=== PATIENT | male | born 1995 | race Two or more races ===

== ENCOUNTER 2019-09-07 23:07 | Emergency (ER) | payer SELFPAY ==
[2019-09-08 00:06] LABS: ABSOLUTE MONOCYTES (AUTO) 0.7 10^3/uL (0.1-1.4); ABSOLUTE NEUT (AUTO) 10.5 10^3/uL (1.7-8.2); BASOPHILS % (AUTO) 0.3 % (0-2); EOSINOPHILS % (AUTO) 0.1 % (0-6); HEMATOCRIT 42.2 % (37.9-51.0); HEMOGLOBIN 14.4 g/dL (13.5-17.0); MEAN CORPUSCULAR HEMOGLOBIN 30.4 pg (27.0-33.4); MEAN CORPUSCULAR HGB CONC 34.2 g/dL (32.0-36.0); MEAN CORPUSCULAR VOLUME 89 fl (80-97); MONOCYTES % (AUTO) 5.6 % (3-13); PLATELET COUNT 319 10^3/uL (150-450); RED BLOOD COUNT 4.74 10^6/uL (4.35-5.55); RED CELL DISTRIBUTION WIDTH 13.5 % (11.5-14.0); TOTAL CELLS COUNTED % (AUTO) 100 %; WHITE BLOOD COUNT 12.2 10^3/uL (4.0-10.5)
[2019-09-08 00:16] LABS: ALBUMIN 5.4 g/dL (3.5-5.0); ALKALINE PHOSPHATASE 73 U/L (38-126); ANION GAP 11 (5-19); ASPARTATE AMINO TRANSFERASE 35 U/L (17-59); BILIRUBIN,DIRECT 0.1 mg/dL (0.0-0.4); BILIRUBIN,TOTAL 0.5 mg/dL (0.2-1.3); BLOOD UREA NITROGEN 15 mg/dL (7-20); CALCIUM 10.1 mg/dL (8.4-10.2); CARBON DIOXIDE 26 mmol/L (22-30); CHLORIDE 105 mmol/L (98-107); GLUCOSE 86 mg/dL (75-110); POTASSIUM 4.3 mmol/L (3.6-5.0); TOTAL PROTEIN 8.5 g/dL (6.3-8.2)
[2019-09-08 00:19] LABS: ACETAMINOPHEN < 10 ug/mL (10-30); ALCOHOL < 10 mg/dL (NONE DETECTED); SALICYLATE < 1.0 mg/dL (2.0-20.0)
[2019-09-08] MEDS ORDERED: MIDAZOLAM 2 MG/2 ML INJ IV ONE ×2 (01:13→01:16)
--- NOTE | 2019-09-08 03:46 | ER Document Report ---
ED General - General Chief Complaint: Altered Mental Status Stated Complaint: BEHAVORIAL ISSUES - HPI Notes: 24-year-old male no significant medical history presents with altered mental status and erratic behavior brought in by EMS. As per run sheet and [employer] Officer Gaspar patient was using possibly marijuana and shrooms and [employer] was called for a domestic dispute, but upon arrival they thought that patient needed EMS given that patient was very sweaty and heart rate was fast. EMS gave fluid bolus and ice packs and ketamine. Patient in ED initially refusing to tell me what happened but then admitted to unknown drug use and remembers standing on the balcony other he says he was just trying to be funny and has no thoughts of suicide or homicide. Patient feels well in the ED, no medical complaints. Patient denies any chest pain, shortness of breath, cocaine use, SI/HI, hallucinations - Related Data Allergies/Adverse Reactions: Unable to Assess Allergy (Unverified 09/08/19 00:42) Past Medical History - General Information source: Patient - Social History Smoking Status: Unknown if Ever Smoked Family History: Reviewed & Not Pertinent Patient has homicidal ideation: - unable to assess Review of Systems - Review of Systems Notes: REVIEW OF SYSTEMS: CONSTITUTIONAL : Denies fever, chills, or sweats. EENT: Denies recent cold/sinus symptoms, denies throat pain CARDIOVASCULAR: Denies chest pain, HELEN RESPIRATORY: Denies cough, denies shortness of breath. GASTROINTESTINAL: Denies abdominal pain, nausea/vomiting. GENITOURINARY: Denies difficulty urinating, painful urination. MUSCULOSKELETAL: Denies neck pain, back pain. SKIN: Denies rash or skin lesions. HEMATOLOGIC : Denies easy bruising or bleeding. LYMPHATIC: Denies swollen, enlarged glands. NEUROLOGICAL: Denies headache, denies change in gait. PSYCHIATRIC: Denies anxiety or stress or depression. Physical Exam - Vital signs Vitals: Temp 99.0 F 09/07/19 23:19 - Notes Notes: PHYSICAL EXAMINATION: GENERAL: Well-appearing, well-nourished and in no acute distress. HEAD: Atraumatic, normocephalic. EYES: Pupils equal round and appropriate constriction, sclera anicteric, conjunctiva are normal. ENT: nares patent, moist mucous membranes. NECK: Normal range of motion, supple without lymphadenopathy LUNGS: Normal respiratory rate and effort, speaking in full sentences HEART: Regular rate, no JVD, no lower extremity edema ABDOMEN: Soft, nontender EXTREMITIES: Normal range of motion, no pitting or edema. No cyanosis. NEUROLOGICAL: Awake, alert, conversing appropriately, moves all extremities spontaneously. PSYCH: Normal mood, normal affect. SKIN: Warm, Dry, normal turgor, no rashes or lesions noted. Course - Re-evaluation Re-evalutation: 09/08/19 04:22 Patient able to give me a reliable story of the events that transpired before he arrived in ED. After initial sedation with Versed while patient was still clearly intoxicated and unable to give reliable story patient woke up and was able to give story and deny all medical symptoms. Patient exam was normal and no emergent findings on his work-up, mild leukocytosis likely secondary to acute phase reactant from acute intoxication, discharge patient in [facility] custody for marijuana charges. - Vital Signs Vital signs: Temp Pulse Resp BP Pulse Ox 98.0 F 58 L 16 131/63 H 98 09/08/19 04:04 09/08/19 04:04 09/08/19 04:04 09/08/19 04:04 09/08/19 04:04 - Laboratory Result Diagrams: 09/07/19 23:28 09/07/19 23:28 Laboratory results interpreted by me: 09/07/19 09/07/19 23:28 23:28 WBC 12.2 H Lymph % (Auto) 8.0 L Absolute Neuts (auto) 10.5 H Seg Neutrophils % 86.0 H Total Protein 8.5 H Albumin 5.4 H Salicylates < 1.0 L Acetaminophen < 10 L - EKG Interpretation by Me Additional EKG results interpreted by me: 09/08/19 01:00 Heart rate 70, normal sinus rhythm, no significant ST elevations or depressions, QTC 419 Discharge - Discharge Clinical Impression: Altered mental status Qualifiers: Altered mental status type: unspecified Qualified Code(s): R41.82 - Altered mental status, unspecified Condition: Good Disposition: HOME, SELF-CARE Additional Instructions: You were seen in the emergency department for erratic behavior which is now resolved. Follow-up with your primary doctor within 1 week. If you develop any symptoms such as fever, headache, neck pain or stiffness, trouble breathing, vomiting, confusion, dizziness or fainting, or any other worsening or alarming symptoms return to the ED immediately.
[2019-09-08 04:07] VITALS: BP 131/63
--- NOTE | 2019-09-08 11:10 | EKG REPORT ---
SEVERITY:- NORMAL ECG - SINUS RHYTHM : Confirmed by: Anahi Boss MD 08-Sep-2019 11:09:25
== END 2019-09-08 04:08 ==
LOC: ER 23:07
DX: R41.82 Altered mental status, unspecified (principal); R61 Generalized hyperhidrosis
CPT/HCPCS: 93005; 99285; 96374; 36415; 80307 ×3; 85025; 80053; 93010; J2250